=== PATIENT | male | born 1960 | race Caucasian/White ===

== ENCOUNTER 2016-09-12 06:58 | Emergency (ER) | payer OTHER ==
[~2016-09-12] VITALS: Ht 200.7 cm; Wt 99.8 kg
[2016-09-12] MEDS ORDERED: LIDOCAINE 1% HCL (LOCAL ANESTH.) INJ 20ML MDV ONE (09:30)
[2016-09-12] MEDS ORDERED: LIDOCAINE 1% HCL (LOCAL ANESTH.) INJ 20ML MDV IJ ONE (10:00)
[2016-09-12 12:10] VITALS: BP 146/60
== END 2016-09-12 13:44 | disposition home or self-care (01) ==
LOC: ER 06:59
DX: S63.275A Dislocation of unspecified interphalangeal joint of left ring finger, initial encounter (principal); W19.XXXA Unspecified fall, initial encounter; Y93.89 Activity, other specified; Y99.0 Civilian activity done for income or pay; Y92.69 Other specified industrial and construction area as the place of occurrence of the external cause
CPT/HCPCS: 26770; 73130; 73140; 99284; J2001